=== PATIENT | male | born 1935 ===

== ENCOUNTER 2018-08-12 07:39 | Day surgery (SDC) | payer MEDICARE ==
[2018-08-12 08:31] VITALS: BMI 28.8
[2018-08-12] MEDS ORDERED: Lactated Ringer's 500 ML IV ONE (08:59)
[2018-08-12] MEDS ORDERED: Propofol 10 mg/ml Inj (20 ML) ONE (09:01)
[2018-08-12] MEDS ORDERED: Etomidate 20 mg/10ml Inj IV ONE (09:01)
--- NOTE | 2018-08-12 09:01 | CP.SDSHP ---
Same Day Surgery H & P - History Proposed Procedure: colonoscopy Pre-Op Diagnosis: Chronic diarrhea. Weight Loss - Previous Medical/Surgical History Cardiac: Hypertension, Other (LVH, hyperlipidemia, ) Endocrine/Metabolic: Diabetes Misc: Other (BPH, Gerd, Pneumonia 05/28, ) Previous Surgical History: LN biopsy in past from neck - Allergies Allergies: Allergies No Known Allergies Allergy (Verified 08/12/18 08:32) - Physical Exam General Appearance: Icteric skin and sclera Vital Signs: Vital Signs 08/12/18 08:21 Temperature 98.4 F Pulse Rate 62 Respiratory 19 Rate Blood Pressure 131/51 L O2 Sat by Pulse 98 Oximetry Mental Status: Alert & Oriented x3 Neuro: WNL Heart: WNL Lungs: WNL GI: WNL - Impression Impression: Chronic diarrhea. Weight loss Pt. Evaluated Today:Candidate for Anesthesia & Procedure: Yes - Date & Time Date: 08/12/18 Time: 09:01 Short Stay Discharge - Short Stay Discharge Admitting Diagnosis/Reason for Visit: DIARRHEA, UNSPECIFIED,ABNORMAL RESULTS OF LIVER FU Disposition: HOME/ ROUTINE Referrals: Mark Gutierrez MD [Primary Care Provider] -
[2018-08-12 09:35] VITALS: TEMP 96.9
[2018-08-12 10:02] VITALS: PULSE 55; O2SAT 99
[2018-08-12 11:02] VITALS: BP 130/58; RESP 18
== END 2018-08-12 10:50 | disposition home or self-care (01) ==
LOC: C.ENDO 07:39
PROVIDERS: ATTEND Internal Medicine Gastroenterology
DX: K52.9 Noninfective gastroenteritis and colitis, unspecified (principal); R63.4 Abnormal weight loss; I10 Essential (primary) hypertension; E11.9 Type 2 diabetes mellitus without complications; E78.5 Hyperlipidemia, unspecified; K21.9 Gastro-esophageal reflux disease without esophagitis
CPT/HCPCS: 45380; 82948; 87045; 87177; 87209; 88305; 88313; 88342; 89055; J2704; J7120